=== PATIENT | female | born 1935 | race Caucasian/White ===

== ENCOUNTER 2021-06-04 23:11 | Inpatient (IN) | payer OTHER ==
[~2021-06-04] VITALS: Ht 162.6 cm; Wt 55.4 kg
--- NOTE | ~2021-06-04 | EMS ---
[address] [address] EMS Patient Care Report Name: SARAH GREENE Room #: REG MONTSERRAT Davidson#: [id number] Admission: 06/04/21 Attend Phys: Discharge: Date of : 34 Report #: [id number] THIS REPORT FOR: //name// Report Transmitted: 06/04/2021 23:05 EMS Care Summary [facility] MED-ACT Incident [id number] @ 06/04/2021 22:19 Incident Location [facility] [place] [address] Patient SARAH GREENE Female, 86 Years 1935 Patient Address [address] [place] [address] Patient History Dementia,Hypertension (HTN),Pneumonia,Depression,Anemia,Hypothyroidism, Patient Allergies Penicillin allergy,Sulfa, Patient Medications Cipro, Hydrochlorothiazide (Hctz), Albuterol, Levothyroxine, Chief Complaint not eating and drinking Disposition Transported No Lights/[place] Dispatch Reason Sick Person Transported To [facility] Narrative Dispatched to the above residence for a reported sick person. Arrived on scene to find pt. lying on sofa, AOx4, no obvious distress, attended to by staff. [facility] [address] [place] [address] EMS Patient Care Report Name: SARAH GREENE Room #: ROSARIO Davidson#: [id number] Admission: 06/04/21 Attend Phys: Discharge: Date of : 34 Report #: [id number] Staff report that the pt. was diagnosed 2 weeks ago with pneumonia and finished her antibiotics. Staff report that the pt. is still not eating and drinking well, has had fairly low BP all day and low oxygen levels. Pt. denied difficulty breathing, dizziness but did state "I don't feel well and need rest." Pt. initially hesitant to be transported to ED late at night but agreed after being informed her daughter wanted her to be evaluated at the ED. Obtained VS, 3 Ld ECG, temp. Lifted pt. and moved to cot, secured with straps and moved cot to ambulance without incident. Placed pt. on O2 as charted. Monitored pt. during transport. Biocom to ED, bedside report and transfer of care to ED staff at [facility]. Initial Vitals @22:46P: 104,BP: 95/61,SpO2: 88, @22:41P: 100,SpO2: 89, @23:01P: 115,BP: 98/66,SpO2: 96, @22:48P: 110,SpO2: 90,MD Suspected: false @22:58P: 85,SpO2: 96, @22:31P: 82,R: 16,BP: 93/57,Pain: 0/10,GCS: 15,Temp: 98.9F,SpO2: 89,Revised Trauma: 12, Impression Malaise Procedures @PTASurgical Mask on Patient@23:02Oxygen FlowRate: 2 Device: Nasal Cannula (NC) Response: ImprovedSucceeded Timeline MEDICAL CODING MANAGER,Surgical Mask on Patient, 22:17,Call Received 22:17,Psap Call 22:19,Dispatched 22:21,En Route 22:29,On Scene 22:29,At Patient 22:31,BP: 93/57 M,PULSE: 82,RR: 16 R,SPO2: 89 Ox,ETCO2: ,BG: ,PAIN: 0,GCS: 15, 22:41,BP: / M,PULSE: 100,RR: R,SPO2: 89 Ox,ETCO2: ,BG: ,PAIN: ,GCS: , 22:46,BP: 95/61 M,PULSE: 104,RR: R,SPO2: 88 Ox,ETCO2: ,BG: ,PAIN: ,GCS: , 22:48,BP: / M,PULSE: 110,RR: R,SPO2: 90 Ox,ETCO2: ,BG: ,PAIN: ,GCS: , 22:51,Depart Scene 22:58,BP: / M,PULSE: 85,RR: R,SPO2: 96 Ox,ETCO2: ,BG: ,PAIN: ,GCS: , 23:01,BP: 98/66 M,PULSE: 115,RR: R,SPO2: 96 Ox,ETCO2: ,BG: ,PAIN: ,GCS: , 23:02,Oxygen FlowRate: 2 Device: Nasal Cannula (NC) Response: Andrewccmichel, 23:05,At Destination [address] [place] [address] EMS Patient Care Report Name: SARAH GREENE Room #: REG Lety#: [id number] Admission: 06/04/21 Attend Phys: Discharge: Date of : 34 Report #: [id number] 23:11,Call Closed Disclaimer v1.1 Copyright 2020 [employer] This EMS Care Summary contains data elements from the applicable legal record (which may be displayed differently). It is designed to provide pertinent information for the following purposes: continuity of care, clinical quality, and state data reporting. The complete legal record is available to ED staff and administrators of the receiving hospital in [employer]'s Patient Tracker. All data is provided "as is."
--- NOTE | ~2021-06-04 | HC ---
[facility] [place] [address] CONSULTATION Name: SARAH GREENE Room #: 450-P ADM IN M.R.#: [id number] Admission: 06/05/21 Attend Phys: Ozzie Pelayo MD Discharge: Date of : 34 Report #: [id number] THIS REPORT FOR: cc: Cody Redmond MD, Mark I. MD Smithson, David G. MD ~ DATE OF SERVICE: 06/07/2021 HISTORY OF PRESENT ILLNESS: This is an 86-year-old white female who lives in assisted living facility, was admitted with acute respiratory failure, sepsis, pneumonia, mental status changes with an apparent toxic metabolic encephalopathy, multiple electrolyte abnormalities. She also was diagnosed with a pulmonary embolism noted to be right-sided and a left lower extremity DVT. She has been follow closely with Infectious Disease and Internal Medicine as well as Geriatrics. She is gradually improving and her oxygen is being weaned. She is being treated with IV vancomycin and aztreonam as well as Solu-Medrol. She has been on heparin drip. We are seeing her in rehabilitation medicine consultation. PAST MEDICAL HISTORY: Includes congestive heart failure, major depressive disorder, hypertension, COPD. There is a note of some dementia. MEDICATIONS: See the full medication listing. ALLERGIES: PENICILLIN AND SULFA. SOCIAL HISTORY: As noted above. She had been living in her own independent apartment up until last fall and has now been living in assisted living facility. She did not utilize any gait aids and was not on oxygen. There is a daughter who is a durable power of deputy commonwealth's attorney, who lives in [place]. REVIEW OF SYSTEMS: No current complaints of chest pain, shortness of breath or abdominal discomfort. PHYSICAL EXAMINATION: GENERAL: An 86-year-old white female in no obvious distress. VITAL SIGNS: Last recorded temperature of 36.3, pulse 57, respirations 16, blood pressure 114/56. NEUROLOGIC: She is alert. She will follow basic 1-step commands. There is some delay to her responses. Facies appeared symmetric. She is pleasant. She has functional range of motion of both upper extremities. Strength is grade 4-/5. DTRs are trace to 1. Lower extremities, tone appeared to be intact, no focal calf swelling, functional range of motion, strength is grade 3+ to 4-/5. She has been min assist; sit to stand and gait was last 5 feet min-assist with a front-wheeled walker. She is currently off oxygen. [address] [address] CONSULTATION Name: SARAH GREENE Room #: 450-P [facility] IN [facility]#: [id number] Admission: 06/05/21 Attend Phys: Ozzie Pelayo MD Discharge: Date of : 34 Report #: [id number] ASSESSMENT: An 86-year-old white female with the following problem list: 1. Toxic metabolic encephalopathy. 2. Acute respiratory failure. 3. Sepsis. 4. Pulmonary embolism with left lower extremity deep venous thrombosis. 5. Congestive heart failure. 6. Major depressive disorder. 7. History of hypertension. 8. Chronic obstructive pulmonary disease. PLAN: The patient is a candidate for a short acute in-hospital inpatient rehabilitation stay. The goal would be to maximize her functional strength and independence, so she can return back to her assisted living facility. It also be to further stabilize her medical condition with the multiple consultants that could continue to follow while she is on rehabilitation. She appears to have the tolerance for an acute inpatient rehabilitation stay. We can plan on transfer if all agreeable and medically cleared. By: [id number] Imer Shah MD /nt
[2021-06-04 23:12] VITALS: BP 123/58
[2021-06-04] MEDS ORDERED: ALBUTEROL2.5 MG/31 (23:28)
[2021-06-04] MEDS ORDERED: FERROUS SULFATE PO (23:28)
[2021-06-04] MEDS ORDERED: LEVO-T50 MCG PO (23:30)
[2021-06-04] MEDS ORDERED: HYDROCHLOROTHIA25 M1 PO (23:30)
[2021-06-04] MEDS ORDERED: LASIX 40 MG TAB40 MG PO (23:30)
[2021-06-04] MEDS ORDERED: GUAIFENESIN ER PO (23:30)
[2021-06-04] MEDS ORDERED: MILK OF MA400 MG/5 M PO (23:31)
[2021-06-04] MEDS ORDERED: LOPERAMIDE2 MG PO (23:31)
[2021-06-04] MEDS ORDERED: DAILY VITE1 EAC1 PO (23:32)
[2021-06-04] MEDS ORDERED: LASIX 40 MG TAB40 M2 PO (23:34)
[2021-06-04] MEDS ORDERED: REMERON15 M2 PO (23:36)
[2021-06-04] MEDS ORDERED: KLOR-CON 10 ER10 MEQ PO (23:37)
[2021-06-04 23:48] LABS: ABSOLUTE NEUTROPHILS 15.8 thou/uL (1.4-8.2); BASOPHILS 0.1 % (0.0-2.0); EOSINOPHILS 0.1 % (0.0-3.0); HEMATOCRIT 37.7 % (37.0-47.0); HEMOGLOBIN 12.2 gm/dL (12.0-15.0); MCH 27.4 pg (26.0-34.0); MCHC 32.3 g/dL (28.0-37.0); MCV 84.8 fL (80.0-100.0); MONOCYTES 6.1 % (1.0-8.0); PLATELET COUNT 404 thou/uL (150-400); POLYS 88.7 % (36.0-66.0); RBC 4.44 mil/uL (4.20-5.00); RDW 14.1 % (10.5-14.5); WBC 17.9 thou/uL (4.0-11.0)
[2021-06-05 00:19] LABS: ALBUMIN 2.7 g/dL (3.4-5.0); ANION GAP 3 mmol/L (7-16); BUN 49 mg/dL (7-18); CALCIUM 8.7 mg/dL (8.5-10.1); CHLORIDE 83 mmol/L (98-107); CO2 43 mmol/L (21-32); CREATININE 1.4 mg/dL (0.6-1.0); GLUCOSE 143 mg/dL (74-106); MAGNESIUM 1.7 mg/dL (1.8-2.4); SGOT 27 U/L (15-37); SGPT 18 U/L (30-65); SODIUM 129 mmol/L (136-145); TOTAL BILIRUBIN 0.5 mg/dL (0.2-1.0); TOTAL PROTEIN 7.7 g/dL (6.4-8.2); TROPONIN-I <0.06 ng/mL (<0.06)
[2021-06-05 00:21] LABS: POTASSIUM 2.1 mmol/L (3.5-5.1)
[2021-06-05 00:26] LABS: URINE BILIRUBIN NEGATIVE (Negative); URINE BLOOD NEGATIVE (Negative); URINE CLARITY CLEAR; URINE COLOR YELLOW; URINE GLUCOSE-RANDOM* NEGATIVE (Negative); URINE KETONES NEGATIVE (Negative); URINE LEUKOCYTES-REFLEX NEGATIVE (Negative); URINE NITRITE-REFLEX NEGATIVE (Negative); URINE PROTEIN (DIPSTICK) NEGATIVE (Negative); URINE SPECIFIC GRAVITY 1.015 (1.005-1.035); URINE UROBILINOGEN 0.2 E.U./dl (0.2-1.0)
[2021-06-05 03:02] LABS: INR 1.05; PROTIME 11.4 Seconds (10.5-12.1)
--- NOTE | 2021-06-05 07:09 | EKG ---
[address] [address] ELECTROCARDIOGRAM REPORT Name: SARAH GREENE Room #: 170-8 ADM IN M.R.#: [id number] Admission: 06/05/21 Attend Phys: Roland Sanchez MD Discharge: Date of : 34 Report #: [id number] [facility] ED Test Date: 2021-06-04 Test Time: 23:11:11 Pat Name: SARAH GREENE Department: Room: 170 Gender: F Patient Relations Specialist: JULIANNA : 1935 Requested By: Meg Lim Order Number: [id number] MD: Brian Mack Measurements Intervals [place] Rate: 120 P: 102 CA: 247 QRS: 72 QRSD: 90 T: -87 QT: 390 QTc: 552 Interpretive Statements Sinus tachycardia Prolonged CA interval Prominent P waves, nondiagnostic Posterior infarct, acute (LCx) Prolonged QT interval Baseline wander in lead(s) V6 No previous ECG available for comparison Electronically Signed On 06-05-2021 7:09:43 CDT by Brian Mack [email or web address] <ELECTRONICALLY SIGNED> By: Brian Mack MD, [facility] 06/05/21 [phone] 10 Brian Mack MD, [facility] /EPI
[2021-06-05 07:38] VITALS: BP 102/52
[2021-06-05 08:00] VITALS: BP 102/48
[2021-06-05 13:00] VITALS: BP 102/52
[2021-06-05 13:31] VITALS: BP 99/79
[2021-06-05 15:00] VITALS: BP 93/60
--- NOTE | 2021-06-05 16:50 | NUR ---
86 year old female presented to the ED on 06-04-21 with SOA. Patient was transported via EMS ground and had a pulse Ox of 89% on RA. The patient currently [facility] at [place] [facility] She has had previous treatment for pneumonia with Levaquin and Cipro. Found to have per CTA a Right-sided pulmonary emboli. ID NOW in the ED notes negative and ED Triage assessment the patient is not vaccinated. The patients daughter and DPOA notes the patient IS FULLY vaccinated by [employer] by November of 2020. The patient has been admitted with Acute hypoxic respiratory failure - Sepsis - Elevated D-Dimer - Hyponatremia - Hypokalemia - Hypo magnesium - ROSIE- Hypothyroidism. NOTED: 06-05-21 APTT 100.8 and Potassium of 2.6 called to ED nurse. Daughter /DPOA Esthela Cedillo [phone]; she was living in an apartment alone until 08-05. At that time the patient was sent to a hospital and then went to SNF in [facility]. Since then the patient has been living in Assisted Living. Esthela lives in [place] but is emailing me her DPOA papers which I in turn can get to the medical record. The patient's step daughter Susanna Bañuelos at [phone] who does live in [place]. Ishaan Eric is the patient's brother and coming to see his sister - the patient from [place]. Esthela is very comfortable with allowing both Ishaan and Susanna involved and updated on the patient's condition. Introduced the role of CM and discussed as conditions stabilized and evaluations completed CM will assist with discharge plan of care up to including SNF to acute rehab or home health. CM will continue to follow for all needs.
--- NOTE | 2021-06-05 16:56 | NUR ---
Pt arrived to floor from ED per cart in stable condition.Admission history, assessment and care plan completed with assist of step dtr.Pt placed on claim adjuster and late lunch given. Heparin gtt in progress.No verbal c/o. Pt dtr to sign admission paperwork in am.Will continue to monitor.
[2021-06-05 19:42] VITALS: BP 114/48
--- NOTE | 2021-06-06 05:30 | NUR ---
patient aox2 confused and forgetful. patient on heparin drip and flow chart started. patient denied pain or discomfort. fall precaution in place. patient in bed asleep at this time breathing regular and unlaboured.
[2021-06-06 07:47] VITALS: BP 109/55
--- NOTE | 2021-06-06 11:58 | NUR ---
Assumed pt care at 7am.Pt in bed resting without c/o.Assessment completed.vss. Assisted with tray setup. Am meds given and well tolerated.Physical therapist here for eval and treat.Heparin gtt in progress.Dr Pelayo here,new order noted. Pt in bed resting at present. Will continue to monitor.
--- NOTE | 2021-06-06 15:32 | NUR ---
ASSUMED CARE OF PT AT 1300 THIS AFTERNOON. PT IS A/OX2 CONFUSED AND FORGETFUL. PT HAS HEPRIN GTT GOING DUE TO DVT AND PE. ASSESSMENTS NOTED IN CHART AND OTHERWISE UNREMARKABLE. IV'S IN BILAT AC WITH FLUIDS. FALL PRECAUTIONS ARE IN PLACE. CALL LIGHT AND OTHER NEEDS ARE WITHIN REACH.MEDS AND TX GIVEN NEEDED AND SCHEDULED. WILL MONITOR AND NOTE ANY CHANGES.
[2021-06-06 16:50] VITALS: BP 109/53
[2021-06-06 20:20] VITALS: BP 108/57
[2021-06-07 02:35] LABS: HEMATOCRIT 37.2 % (37.0-47.0); HEMOGLOBIN 11.3 gm/dL (12.0-15.0); MCH 27.4 pg (26.0-34.0); MCHC 30.4 g/dL (28.0-37.0); RBC 4.12 mil/uL (4.20-5.00); RDW 15.3 % (10.5-14.5); WBC 20.9 thou/uL (4.0-11.0)
[2021-06-07 02:42] LABS: MCV 90.3 fL (80.0-100.0)
[2021-06-07 02:45] LABS: CALCIUM 7.9 mg/dL (8.5-10.1)
--- NOTE | 2021-06-07 05:26 | NUR ---
Pt. rested quietly at intervals during the night when checked on during frequent rounds. She is pleasantly confused. Pt. offers no c/o pain. Bed alarm is on.
[2021-06-07 07:25] VITALS: BP 116/52
[2021-06-07 15:23] VITALS: BP 120/60
[2021-06-07 17:33] VITALS: BP 120/60
[2021-06-07 20:19] VITALS: BP 105/51
--- NOTE | 2021-06-07 20:59 | NUR ---
pT VERY PLEASANT. nO C/O PAIN TODAY. HEPARIN DRIP LOWERED TO 8 DUE TO ptt AT 87.1. pT HAS RICHTER CATH. nO SPUTUM ON TODAYS SHIFT. WEARING O2 PER NC AT 2L. bED IN LOW POSITION. cALL LIGHT WITHIN REACH.
--- NOTE | 2021-06-08 02:55 | NUR ---
PT CARE ASSUMED WITH PT IN CHAIR WATCHING TV.PT IS A/O X3.PT IS UP WITH X1 ASSIST WITH GAIT BELT AND WALKER.PT IS ON HEPARIN DRIP.IV ACCESS ON RT FA AND LT AC .PT HAS A RICHTER IN PLACE.PT DENIED PAIN ,NAUSEA AND VOMITING.PT HAS EDEMA ON BLE AND BUE.PT TAKE MED WHOLE WITH NO ISSUES.PT IS ON 2L OF O2 VIA NC.WILL CONTIINUE TO MONITOR PER POC
[2021-06-08 07:30] VITALS: BP 114/56
--- NOTE | 2021-06-08 09:10 | NUR ---
86 year old female presented to the ED on 06-04-21 with SOA. Patient was transported via EMS ground and had a pulse Ox of 89% on RA. The patient currently resides at [place] [facility] ([facility]). She has had previous treatment for pneumonia with Levaquin and Cipro. Found to have per CTA a Right-sided pulmonary emboli. ID NOW in the ED notes negative and ED Triage assessment the patient is not vaccinated. The patients daughter and DPOA notes the patient IS FULLY vaccinated by [employer] by November of 2020. The patient has been admitted with Acute hypoxic respiratory failure - Sepsis - Elevated D-Dimer - Hyponatremia - Hypokalemia - Hypo magnesium - ROSIE- Hypothyroidism. NOTED: 06-05-21 APTT 100.8 and Potassium of 2.6 called to ED nurse. Daughter /DPOA Esthela Cedillo [phone]; she was living in an apartment alone until 08-05. At that time the patient was sent to a hospital and then went to SNF in [facility]. Since then the patient has been living in Assisted Living. Esthela lives in [place] but is emailing me her DPOA papers which I in turn can get to the medical record. The patient's step daughter Susanna Bañuelos at [phone] who does live in [place]. Pt's brother also to visit pt. Cm following regarding dc planning.
--- NOTE | 2021-06-08 11:16 | NUR ---
CM CALLED AND SPOKE WITH PT'S DTR/DPOA THIS AM. SHE INDICATED THAT THE HADN'T BEEN ON ANY O2 SAFETY PATROL OFFICER AND THAT PT HAD BEEN INDEPEDNENT WITH GAIT. CM INDICATED TO HER THAT CARE TEAM HAVE DETERMINED THAT PT IS MEDICALLY STABLE TO DC TO NEXT LEVEL OF CARE THIS DAY. CM INDICATED THAT PT IS TO SWITCH TO ORAL ABX AND ELIQUIS. 5N EXPRESSED INTEREST IN ASSESSING FOR POSSIBLE ADMISSION. DTR, STEP DTR, AND BROTHER ALL INVOLVED AND DTR INOCENCIA INDICATED THAT 5N CAN ACCESS AND THAT SHE WOULD LIKELY PREFER PT GO TO 5N IF APPROPRIATE FOR ADDITIONAL MEDICAL MONITORING. CM FOLLOWING REGARDING DC PLANNING.
--- NOTE | 2021-06-08 14:58 | NUR ---
AT SHIFT CHANGE; PATIENT WAS FOOUND LYING IN BED; A&OX4 AND PLEASANTLY CONFUSED. ASSESSMENT CHARTED. MEDS ADMINISTERED PO W NO ISSUES. ABX INFUSING ON L AC W NO ISSUES; HEPARIN GTT ALSO INFUSING ON R FA W NO ISSUES. SPUTUM CULTURE STILL PENDING; PATIENT EDUCATED ON COLLECTION OF SPUTUM; AWARE BUT CONFUSED AT TIMES. RICHTER DISCONTINUED & PATIENT VOIDING WELL. ELIQUIS ORDERED; PAGED PROVIDER ABOUT DC HEPARIN. PATIENT TO TRANSFER TO TOMORROW. COVID NOW SWAB TO BE COMPLETE. DENIES PAIN & OTHER NEEDS. CONTINUING TO MONITOR AND AWAITING NEW ORDERS
[2021-06-08 15:32] VITALS: BP 114/61
--- NOTE | 2021-06-08 16:29 | NUR ---
THIS RN AGREES WITH THE FILLER SIFTER HELPER ASSESSMENT.
[2021-06-08 20:47] VITALS: BP 124/64
--- NOTE | 2021-06-09 03:02 | NUR ---
ASSUMED CARE OF PT AT SHIFT CHANGE. PT WAS ALERT AT THE TIME OF ASSESSMENT BUT ONLY ORIENTED TO PERSON. FALL PRECAUTION IN PLACE. PT DENIED PAIN, NAUSEA OR SOA. ASSESSMENT CHARTED. PT WAS INCT THIS SHIFT. PT PULLED OUT ONE OF HER IVS. PT WAS ABLE TO GET COMFORTABLE AND SLEEP PART OF THE SHIFT. VSS AND NO S/S OF ACUTE DISTRESS. WILL CONTINUE TO MONITOR.
[2021-06-09 07:31] VITALS: BP 116/42
[2021-06-09 08:20] VITALS: BP 116/42
--- NOTE | 2021-06-09 10:31 | NUR ---
CALLED AND SPOKE TO SONIA LR TAKING CARE OF MS. GREENE. SHE TOLD ME THAT THIS PATIENT WILL BE TRANSFERRING TO 5N TODAY. WALK IS THEN UNNECCESARY AND NOT NEEDED TO GERTRUDISSKIMBERLY. CANCELLED BY THIS RT
[2021-06-09 10:32] LABS: ABSOLUTE NEUTROPHILS 13.6 thou/uL (1.4-8.2); BASOPHILS 0.1 % (0.0-2.0); EOSINOPHILS 0.1 % (0.0-3.0); HEMATOCRIT 37.2 % (37.0-47.0); HEMOGLOBIN 11.7 gm/dL (12.0-15.0); LYMPHOCYTES 10.7 % (24.0-44.0); MCH 27.1 pg (26.0-34.0); MCHC 31.6 g/dL (28.0-37.0); MCV 85.9 fL (80.0-100.0); MONOCYTES 4.7 % (1.0-8.0); PLATELET COUNT 379 thou/uL (150-400); POLYS 84.4 % (36.0-66.0); RBC 4.33 mil/uL (4.20-5.00); RDW 14.8 % (10.5-14.5); WBC 16.2 thou/uL (4.0-11.0)
[2021-06-09 10:50] LABS: ALBUMIN 2.2 g/dL (3.4-5.0); CALCIUM 8.5 mg/dL (8.5-10.1); CREATININE 0.8 mg/dL (0.6-1.0); MAGNESIUM 1.4 mg/dL (1.8-2.4); POTASSIUM 3.6 mmol/L (3.5-5.1); TOTAL BILIRUBIN 0.2 mg/dL (0.2-1.0); TOTAL PROTEIN 6.2 g/dL (6.4-8.2)
[2021-06-09] MEDS ORDERED: DOXYCYCLINE HYC50 MG PO (11:46)
[2021-06-09] MEDS ORDERED: ELIQUIS5 MG PO (11:47)
[2021-06-09] MEDS ORDERED: ZINC SULFATE50 MG PO (11:48)
[2021-06-09] MEDS ORDERED: PROTONIX 20 MG20 M1 PO (11:49)
--- NOTE | 2021-06-09 12:01 | NUR ---
ASSUMED CARE OF PATIENT AT SHIFT CHANGE. ASSESSMENT CHARTED; MEDS ADMINISTERED PER EMAR. VSS. PATIENT GOT UP THIS MORNING X1 MIN-MOD ASSIST. PATIENT WAS INCONTINENT OF BOWEL & BLADDER BUT DURING DAY IS ABLE TO VOICE NEED TO VOID. PATIENT C/O DIARRHEA BUT HAS SOFT, FORMED STOOLS. PATIENT IS TOLERATING PO INTAKE WELL ALONG WITH THIN LIQUIDS. TAKES MEDS WHOLE WITH NO ISSUES; STILL A BIT CONFUSED AND FORGETFUL BUT EASILY REDIRECTED. VOICES NO FURTHER NEEDS. IV WILL BE LEFT IN FOR TRANSFER TO . TABLE TENDER AWARE; PATIENT HAS AN ETA OF AFTER 1400. WILL CONTINUE TO MONITOR UNTIL DISCHARGE
--- NOTE | 2021-06-09 12:05 | NUR ---
CARE TEAM INDICATED THAT PT IS MEDICALLY STABLE TO DC TO 5N THIS DAY. PT WAS INFORMED WELL PT'S DTR/DPIRISH PRO. NURSE HAS NUMBER FOR REPORT. PT IS TO DC THERE LATER THIS AFTERNOON. NO OTHER CM INTERVENTION INDICATED. CASE CLOSED.
== END 2021-06-09 15:27 | DRG 871 ==
LOC: ER 23:11 → 4W 06-05 02:24 → EROBS 06-05 02:24 → 4W 06-05 13:00
PROVIDERS: Emergency Medicine; Internal Medicine; Nurse Practitioner Family; ADMIT Hospitalist; ATTEND Hospitalist
DX: A41.9 Sepsis, unspecified organism (principal); J18.9 Pneumonia, unspecified organism; J96.01 Acute respiratory failure with hypoxia; G92 Toxic encephalopathy; I26.99 Other pulmonary embolism without acute cor pulmonale; E87.1 Hypo-osmolality and hyponatremia; N17.9 Acute kidney failure, unspecified; I82.412 Acute embolism and thrombosis of left femoral vein; I82.432 Acute embolism and thrombosis of left popliteal vein; J44.0 Chronic obstructive pulmonary disease with (acute) lower respiratory infection; Z20.822 Contact with and (suspected) exposure to COVID-19; M81.0 Age-related osteoporosis without current pathological fracture; E87.6 Hypokalemia; E03.9 Hypothyroidism, unspecified; F32.9 Major depressive disorder, single episode, unspecified; I11.0 Hypertensive heart disease with heart failure; E83.42 Hypomagnesemia; I50.9 Heart failure, unspecified; F03.90 Unspecified dementia, unspecified severity, without behavioral disturbance, psychotic disturbance, mood disturbance, and anxiety; R53.81 Other malaise; Z88.0 Allergy status to penicillin; Z88.2 Allergy status to sulfonamides; Z79.899 Other long term (current) drug therapy
CPT/HCPCS: 10045

== ENCOUNTER 2021-06-08 14:51 | Inpatient (IN) | payer OTHER ==
[~2021-06-08] VITALS: Ht 162.6 cm; Wt 54.4 kg
[~2021-06-08 14:51] MED LIST: ALBUTEROL2.5 MG/31; DAILY VITE1 EAC1 PO; FERROUS SULFATE PO; GUAIFENESIN ER PO; HYDROCHLOROTHIA25 M1 PO; KLOR-CON 10 ER10 MEQ PO; LASIX 40 MG TAB40 M2 PO; LASIX 40 MG TAB40 MG PO; LEVO-T50 MCG PO; LOPERAMIDE2 MG PO; MILK OF MA400 MG/5 M PO; REMERON15 M2 PO
[2021-06-09] MEDS ORDERED: DOXYCYCLINE HYC50 MG PO (11:46)
[2021-06-09] MEDS ORDERED: ELIQUIS5 MG PO (11:47)
[2021-06-09] MEDS ORDERED: ZINC SULFATE50 MG PO (11:48)
[2021-06-09] MEDS ORDERED: PROTONIX 20 MG20 M1 PO (11:49)
[2021-06-09 15:30] VITALS: BP 102/53
--- NOTE | 2021-06-09 15:30 | NUR ---
PT ARRIVED VIA JESSICA CHAIR. PT ALERT TO SELF. PT DIDN'T KNOW WHAT DAY OF THE WEEK IT WAS, PT THOUGHT IT WAS TUESDAY. PT PLEASANT AND ANSWERED ADMIT QUESTIONS. PT LUNGS SOUNDED EXP CRACKLES WITHOUT COUGH. PT DENIES ANY SOB. PT DIDN'T HAVE BRIEF ON. PT WANTED COFFEE TO DRINK. PT TOLERATED COFFEE WITHOUT COUGH. PT HAS CHAIR ALARM ON. PT ORIGIONALY FROM [facility]. PT HAD UTI AND ALSO PNA. PT HAS DVT, PT DIDN'T KNOW WHERE DVT IS LOCATED. PT HAD LARGE BM TODAY ON PREVIOUS UNIT. PT HAS SL TO RT FA THAT IS WRAPPED.
--- NOTE | 2021-06-09 17:20 | NUR ---
PT CHEWING ON LEFT THUMB NAIL. NOTICED A URINE ODOR. PT WAS INCON. OF URINE AND HAD SMALL SMEAR OF BM ON PAD. PLACED BRIEF PANTS ON PT, AND GAVE PT HER TRAY FOR DINNER.
[2021-06-09 19:23] VITALS: BP 105/66
--- NOTE | 2021-06-10 00:09 | NUR ---
PT ALERT AND CONFUSED. UP IN RECLINER ALL EVENING. TRANSFERRED TO BED AT WITH ASSIST X 1. PT TOOK HS MEDS WITH WATER WITHOUT DIFFICULTY. PT DENIES PAIN OR DISCOMFORT. BED ALARM ON FOR SAFETY. PT APPEARS TO BE SLEEPING ON HOURLY ROUNDS.
[2021-06-10 06:04] LABS: HEMATOCRIT 31.5 % (37.0-47.0); HEMOGLOBIN 10.3 gm/dL (12.0-15.0); MCH 27.9 pg (26.0-34.0); MCHC 32.7 g/dL (28.0-37.0); MCV 85.2 fL (80.0-100.0); RBC 3.7 mil/uL (4.20-5.00); RDW 14.8 % (10.5-14.5); WBC 11.6 thou/uL (4.0-11.0)
[2021-06-10 06:18] LABS: CALCIUM 7.7 mg/dL (8.5-10.1); CREATININE 0.8 mg/dL (0.6-1.0); POTASSIUM 3.7 mmol/L (3.5-5.1)
[2021-06-10 06:52] LABS: FOLIC ACID 12.8 ng/mL (8.6-58.9)
[2021-06-10 07:15] VITALS: BP 98/52
[2021-06-10 09:00] VITALS: BP 98/52
--- NOTE | 2021-06-10 14:45 | NUR ---
Chart review, tried to visit her today, working with therapy and currently resting in bed with eyes closed. Noted she lives alone at ([facility]. 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 No dme. Unknown if had hh in the past. Will cont following as needed for dc needs.
[2021-06-10 15:17] LABS: URINE BILIRUBIN NEGATIVE (Negative); URINE BLOOD NEGATIVE (Negative); URINE CLARITY CLEAR; URINE COLOR YELLOW; URINE GLUCOSE-RANDOM* NEGATIVE (Negative); URINE KETONES NEGATIVE (Negative); URINE LEUKOCYTES-REFLEX NEGATIVE (Negative); URINE NITRITE-REFLEX NEGATIVE (Negative); URINE PROTEIN (DIPSTICK) NEGATIVE (Negative); URINE UROBILINOGEN 0.2 E.U./dl (0.2-1.0)
[2021-06-10 19:56] VITALS: BP 114/48
--- NOTE | 2021-06-10 22:21 | NUR ---
ASSUMED CARE OF PT AT 1900. PT IS A&O TO SELF. IS ON ROOM AIR. DENIES PAIN. IS STABLE. IS UP WITH 1 ASSIST, GB, STAND PIVOT. FALL PRECAUTIONS & HOURLY ROUNDING CONTINUED THIS SHIFT. PT IS CURRENTLY ASLEEP. CALL LIGHT WITHIN REACH. IS TURNED Q2H WITH CUEING & ASSIST. WILL CONTINUE TO MONITOR.
[2021-06-11 09:55] VITALS: BP 94/52
--- NOTE | 2021-06-11 14:50 | NUR ---
FAXED CLINICAL UPDATES TO THE [facility] ([facility] WILL CONFIRM THEY RECEIVED. [facility] P [phone]; FAX [phone]
--- NOTE | 2021-06-11 16:00 | NUR ---
tommy/pablo with missael at [facility] got updates today and will send more updates next week per tommy request and have faxed to bill office since faxes are down and don't have to fax to the skilled side. per tommy.
[2021-06-11 19:35] VITALS: BP 108/59
[2021-06-11 19:47] VITALS: BP 94/52
--- NOTE | 2021-06-11 20:25 | NUR ---
ASSUMED CARE OF PT AT 0700. PT ALERT TO SELF ONLY, PLESANTLY CONFUSED. PT WILLINGLY WORKS WITH THERAPIES. PT APPETITE IS POOR.
--- NOTE | 2021-06-11 21:40 | NUR ---
PATINET CARE WAS RESUMED AT 1900. SHE IS ALERT AND ORIENTED X2 WITH SOME CONFUSSION, SHE DENIES PAINS. LUNGS ARE CLEAR BUT DIMINISHED AT BASES. BS ACTIVE X4 QUADS. ABLE TO VERBALIZE SOME CONCERNS. TOOK HER MEDS. CONTINUE CARE AND MONITOR
[2021-06-12 08:00] VITALS: BP 104/60
--- NOTE | 2021-06-12 12:37 | NUR ---
1237 ASSUMED CARE OF PT FROM OVERNIGHT NURSE. PT C/O PAIN OF 4/10 IN BACK. RECEIVED ORDER FOR VOLTAREN CREAM AND APPLIED TO LOWER BACK. PT TOLERATED PROCEDURE WELL. PT LUNGS CLEAR. WILL CONT TO MONITOR FOR SAFETY AND NEEDS.
--- NOTE | 2021-06-12 12:39 | NUR ---
1239 PT AMBULATES W ASSIST OF 1, GAIT BELT AND WALKER.
[2021-06-12 19:21] VITALS: BP 103/56
--- NOTE | 2021-06-13 03:37 | NUR ---
patient aox2 confused and forgetful.patient need assistance x 1 with adl, bed mobility, transfer and toileting. patient encouraged fluids. patient gets irritable at times. fall precaution in place. patient in bed asleep at this time breathing regular and unlaboured.
--- NOTE | 2021-06-13 08:00 | NUR ---
PT WORKING WITH THERAPY THIS AM GETTING A SHOWER. PT THEN WALKED OUT TO DINING ROOM WITH WALKER FOR BREAKFAST. PT LUNGS CLEAR. PT INCON. OF URINE OR HAS URGENCY. PT HAS AMELIE HOSE ON BILATERALY. PT ORIENTED TO SELF.
[2021-06-13 08:15] VITALS: BP 115/72
--- NOTE | 2021-06-13 09:00 | NUR ---
PT STATED SHE NEEDED TO USE THE BATHROOM. ASSISTED PT TO STAND AND PT ABLE TO WALK TO ROOM. PT WAS INCON. OF SOFT STOOL. PT WAS APPOLIGIZING FOR INCON. PT RECIEVED LAXITIVE DURING THE NIGHT.
--- NOTE | 2021-06-13 09:47 | NUR ---
PT ABLE TO TAKE MEDS WHOLE WITH THIN WATER.
--- NOTE | 2021-06-13 12:09 | NUR ---
PT IN BED LEANING OVER. NOTICED PT HAS A COUGH SINCE LAST MEDICATION ADM. PT IN ROOM AT THIS TIME.
--- NOTE | 2021-06-13 14:54 | NUR ---
PT WENT TO BATHROOM AT 1439. CHECKING ON PT AND SHE STATED SHE WAS NOT FINISHED YET. PT STATED HER STOMACH FELT UPSET AND NEEDED TIME ON TOILET. TOLD PT THAT SHE HAD A MED SOFT BM THIS AM. PT REFUSED TO GET UP OFF TOILET AT THIS TIME.
[2021-06-13 19:25] VITALS: BP 100/57
--- NOTE | 2021-06-14 00:10 | NUR ---
PT ALERT AND ORIENTED X 4. PT TOOK HS MEDS IN APPLESAUCE WITHOUT DIFFICULTY. INCONT OF URINE. PT DENIES PAIN OR DISCOMFORT. BED ALARM ON FOR SAFETY. PT APPEARS TO BE SLEEPING ON HOURLY ROUNDS.
[2021-06-14 07:45] VITALS: BP 109/45
[2021-06-14 08:20] VITALS: BP 109/45
--- NOTE | 2021-06-14 18:31 | NUR ---
ASSUMED CARE OF PT AT 0700. PT ALERT TO SELF, SITUATION, AND MONTH. PT TOLEARING MECHANICAL CHOPPED DIET. PT TAKES HER PILLS ONE AT TIME WITH WATER. PT STATES SHE IS CRANKY TODAY BUT DOESNT KNOW WHY. DENIES PAIN. WILL CONTNIUE TO MONITOR.
[2021-06-14 19:45] VITALS: BP 112/49
--- NOTE | 2021-06-14 22:52 | NUR ---
PT ALERT AND ORIENTED X 1. AMB TO BR WITH WALKER AND ASSIST X 1 WITHOUT DIFFICULTY. INCONT OF URINE. ALSO VOIDS IN TOILET. PT TOOK HS MEDS IN WATER WITHOUT DIFFICULTY. PT DENIES PAIN OR DISCOMFORT. BED ALARM ON FOR SAFETY. PT APPEARS TO BE SLEEPING ON HOURLY ROUNDS.
[2021-06-15 05:30] LABS: BASOPHILS 0.5 % (0.0-2.0); EOSINOPHILS 3.9 % (0.0-3.0); HEMATOCRIT 31.7 % (37.0-47.0); HEMOGLOBIN 10.5 gm/dL (12.0-15.0); LYMPHOCYTES 21.6 % (24.0-44.0); MCH 28.2 pg (26.0-34.0); MCHC 33.1 g/dL (28.0-37.0); MCV 85.2 fL (80.0-100.0); MONOCYTES 8.7 % (1.0-8.0); PLATELET COUNT 317 thou/uL (150-400); POLYS 65.3 % (36.0-66.0); RBC 3.73 mil/uL (4.20-5.00); RDW 15.8 % (10.5-14.5); WBC 7.6 thou/uL (4.0-11.0)
[2021-06-15 05:36] LABS: CALCIUM 8.3 mg/dL (8.5-10.1); CREATININE 0.8 mg/dL (0.6-1.0); MAGNESIUM 1.2 mg/dL (1.8-2.4); POTASSIUM 3.7 mmol/L (3.5-5.1)
[2021-06-15 09:10] VITALS: BP 111/61
[2021-06-15 09:46] VITALS: BP 111/61
[2021-06-15 19:39] VITALS: BP 103/39
--- NOTE | 2021-06-15 22:35 | NUR ---
ASSUMED CARE OF PT AT 1900. PT WAS SLEEPING, BUT AROUSABLE. IS ORIENTED TO SELF. DENIES PAIN. IS ON ROOM AIR. IS STABLE. IS UP WITH 1 ASSIST, GB, WALKER. FALL PRECAUTIONS & HOURLY ROUNDING CONTINUED THIS SHIFT. LABS & VITALS REVIEWED. IS ABLE TO TURN SELF IN BED. LUNGS ARE CLEAR, BUT DIMENISHED TO AUSCULTATION. PT IS STILL SLEEPING AT THIS TIME. CALL LIGHT WITHIN REACH. WILL CONTINUE TO MONITOR.
--- NOTE | 2021-06-16 09:36 | NUR ---
SITTING IN WHEELCHAIR AT SIDE OF BED WITH BREAKFAST TRAY IN FRONT OF HER UPON INITIAL ASSESSMENT THIS AM.COMPLIENT WITH TAKING AM MEDICATIONS AND DENIES COMPLAINTS AT 0810-WHEN REAPPROACHED IN ROOM SHORT TIME LATER APPROX. 0845 WAS TEARFUL AND RUBBING LEFT THIGH STATING "IT HURTS IT HURTS"UNABLE TO STATE TO NURSE IF THIS IS A NEW PAIN OR IF IT WAS SOMETHING THAT HAD GIVEN HER PAIN BEFORE-STATES "I DON'T KNOW-MAYBE"GIVEN WARM MOIST PACK-REPOSITIONED IN RECLINER AND TYLENOL 650MG GIVEN PO PRN-DID REPORT SLIGHT IMPROVEMENT OF PAIN PRIOR TO GOING TO PHYSICAL THERAPY-AT APPROX.1000 UPON RETURN TO FLOOR STATES PAIN IS "BETTER" NOW I AM JUST TIRED I WANT TO REST"DYSPHORIC MOOD-ABRUPT VERBAL RESPONSES-DOES AMBULATE TO/FROM RESTROOM WITH SBA X1.
--- NOTE | 2021-06-16 13:12 | NUR ---
team meeting, recommendation, will need fww, will need frequent checks, ques Wake up, dressing, time voiding and bedtime and , meals. Will check with [facility]. dc 06/23
--- NOTE | 2021-06-16 16:06 | NUR ---
ON-GOING ASSESSMENT: CM FAXED UPDATED CLINICAL TO [facility] ([facility]) AND NOTIFIED OF ANTICIPATED DISCHARGE ON 06/23/21. CM ALSO LEFT WITH AL ADMISSIONS.
[2021-06-16 19:40] VITALS: BP 121/44
--- NOTE | 2021-06-16 22:38 | NUR ---
ASSUMED CARE OF PT AT 1915. PT IS A&O TO SELF. IS ON ROOM AIR. DENIES PAIN IN BILAT LES. IS STABLE. IS UP WITH 1 ASSIST, GB, WALKER. FALL PRECAUTIONS & HOURLY ROUNDING CONTINUED THIS SHIFT. IS ABLE TO TURN SELF IN BED. CAN BE INCONTINENT TO BLADDER AT TIMES. TOILETING OFFERED HOURLY & PROVIDED. PT IS CURRENTLY SLEEPING. CALL LIGHT WITHIN REACH. IS ABLE TO TURN SELF IN BED. WILL CONTINUE TO MONITOR.
--- NOTE | 2021-06-17 08:38 | NUR ---
PT SITTING UP IN W/C THIS AM EATING BREAKFAST. PT STATED SHE NEEDED TO USE THE BATHROOM. PT UP VIA WALKER TO BATHROOM WITH STEADY GAIT. PT DID HAVE BM, PT WAS CONT. OF URINE PRIOR USING BATHROOM. PT LUNGS CLEAR. PT DID STATE SHE HAS SOME PAIN TO LEFT LEG AND RUBBING IT. PT TOOK MEDS WHOLE WITH THIN WATER.
--- NOTE | 2021-06-17 08:40 | NUR ---
ADM TYLENOL 325MG 2 TABS FOR PAIN TO LEFT LEG.
--- NOTE | 2021-06-17 16:23 | NUR ---
Message left for Ella the community engagement coordinator for the [facility]) requesting they advise if they will need to do an onsite prior to the pt returning on 06/23 and if they offer memory care as pt needs lots of cuing for adl's and functional tasks. Ella can be reached through the main facility number [phone]. Will follow.
[2021-06-17 19:10] VITALS: BP 104/49
--- NOTE | 2021-06-18 03:46 | NUR ---
ASSUMED CARE AT 1900 OF 06/17. PATIENT IS A&O TO SELF. DENIES PAIN OR SOB. TOILETING AND ASSISTANCE TO CHANGE INTO GOWN OFFERED, PATIENT REFUSED TO GET OUT OF BED AT . ORAL MEDICATIONS TOLERATED WHOLE IN APPLE SAUCE. ABLE TO REPOSITION SELF IN BED. CALL LIGHT PLACED WITHIN REACH, BED ALARM ON, HOURLY ROUNDING CONTINUED. WILL CONTINUE TO MONITOR.
[2021-06-18 08:00] VITALS: BP 106/61
--- NOTE | 2021-06-18 10:25 | NUR ---
Pt seen d/t overdue LOS: Pt on rehab unit admitted with toxic metabolic encephalopathy, acute respiratory failure 2/2 PNE. PMH: COPD, CHF. Noted with hypokalemia and hyponatremia on admit, lab values improved. On lasix, MVI, Vit D, mirtazapine. >75% avg intakes at meals on chopped diet. Ensure enlive ordered QID. Last BM 06/17. With good dietary intakes, improved labs and supplement in place, pt is low nutrition risk.
--- NOTE | 2021-06-18 11:48 | NUR ---
CARE OF PATIENT ASSUMED AT 0700, PATIENT LAYING IN BED, SHE WAS WET AND REFUSING TO BE CHANGE, SHE LATER AGREE TO BE CHANGE, SHE IS ALERT TO SELF, CONFUSED, SHE ATE BREAKFAST, LUNGS CLEAR, ACTIVE BOWEL SOUND, COLOR BRISK WITH CAPILLARY REFILL, RR EVEN NONLABORED ON ROOM RA, SHE COMPLAINED OF PAIN AND TYLENOL, SHE IS INCONTINENT OF BOWEL AND BLADDER, PATIENT AMBULATE WITH WALKER AND WHEEL CHAIR, WILL CONTINUE TO MONITOR PATIENT FOR SAFETY
--- NOTE | 2021-06-18 14:28 | NUR ---
rubin called [facility] # [phone], spoke with [facility] wellness nurse to see what they can provide for her when she is dc back home?, need to talk with don and i will have her call you per pablo wellness nurse.
[2021-06-18 20:00] VITALS: BP 104/49
--- NOTE | 2021-06-18 22:04 | NUR ---
PT ALERT AND ORIENTED X 1. PT TOOK HS MEDS IN APPLESAUCE WITHOUT DIFFICULTY. PT REFUSED COLACE AND MIRALAX AT HS. PT DENIES PAIN OR DISCOMFORT. PT REFUSED TO GET OUT OF CLOTHES AT HS. STATED I JUST WANT TO SLEEP. SHE DOESN'T LIKE TO BE BOTHERED. BED ALARM ON FOR SAFETY. PT APPEARS TO BE SLEEPING ON HOURLY ROUNDS.
[2021-06-19 08:00] VITALS: BP 103/48
--- NOTE | 2021-06-19 11:37 | PLAN ---
[facility] [place] [address] [address] REHAB UNIT PLAN OF CARE Name: SARAH GREENE Room #: 514-P ADM IN M.R.#: [id number] Admission: 06/09/21 Attend Phys: Imer Shah MD Discharge: Date of : 34 Report #: [id number] THIS REPORT FOR: cc: Cody Redmond MD, Mark I. MD Smithson,Imer Richmond MD ~ DATE OF SERVICE: 06/10/2021 PROGRESS NOTE/OVERALL PLAN OF CARE HISTORY OF PRESENT ILLNESS: The patient is seen back today in followup. She was in no distress. Alert, pleasant. Vitals are as noted. She does not have any calf swelling. No shortness of breath. She is off any oxygen. She has been working in therapies with transfers at a mod assist level. Gait is min assist 3 feet without an assistive device. In occupational therapy, upper body dressing is min assist with lower body dressing, moderate assistance. She was seen by speech prior to her rehab admission and was placed on a mechanical soft, thin liquid diet. ASSESSMENT: 1. Toxic metabolic encephalopathy. 2. Medical complexity with generalized debilitation. 3. Acute respiratory failure. 4. Community-acquired pneumonia with sepsis. 5. Pulmonary embolism with a left lower extremity deep venous thrombosis. 6. Congestive heart failure. 7. Depression with premorbid cognitive deficits. 8. Hypertension. 9. Chronic obstructive pulmonary disease. PLAN: The overall plan of care is based on the pre-admit screen and information garnered from therapy assessments. 1. Estimated length of stay is probably 10-14 days. 2. Medical prognosis reasonably good. 3. Anticipated interventions includes the interdisciplinary acute inpatient rehabilitation program. 4. Anticipated functional outcomes would be for the patient to improve as far as overall functional mobility and ADL independence as well as improvement as far as overall cognition as she did have mental status changes with her toxic metabolic encephalopathy. 5. Discharge destination would be to return back to her assisted living apartment. 6. Expected therapy by discipline includes PT, OT and speech 1 hour per day each five days a week throughout the duration of the acute inpatient rehabilitation stay. [address] [address] REHAB UNIT PLAN OF CARE Name: GREENESARAH Janusz Room #: 514-P [facility] IN [facility].#: [id number] Admission: 06/09/21 Attend Phys: Imer Shah MD Discharge: Date of : 34 Report #: [id number] ADDENDUM: The patient's prognosis for significant practical improvement within a reasonable period of time appears good. Given the patient's complex medical condition and risk of further medical complication, rehabilitation services could not be safely provided at the lower level of care such as a detention facility. <ELECTRONICALLY SIGNED> By: Imer Shah MD 06/19/21 1137 [id number] Imer Shah MD /nt
--- NOTE | 2021-06-19 12:43 | HC ---
[facility] [place] [address] [place] [address] CONSULTATION Name: SARAH GREENE Room #: 514-P [facility] IN M.R.#: [id number] Admission: 06/09/21 Attend Phys: Imer Shah MD Discharge: Date of : 34 Report #: [id number] THIS REPORT FOR: cc: Cody Redmond MD, Mark I. MD Deutch,Charly Arzola. PhD ~ DATE OF SERVICE: 06/14/2021 NEUROBEHAVIORAL STATUS EXAM ATTENDING PHYSICIAN: Imer Shah MD COUNSELING CENTER DIRECTOR: Charly Brasher, PhD CLINICAL PRESENTATION: The patient is an 86-year-old female admitted to [facility] with acute respiratory failure, pneumonia with sepsis, multiple electrolyte abnormalities, acute toxic encephalopathy, pulmonary embolism and left lower extremity DVT. Her medical problem list included elevated D-dimer, DVT, hypokalemia, hyponatremia, pneumonia and sepsis. Her assessment on admission to the rehabilitation unit was toxic metabolic encephalopathy, medical complexity with generalized debility, acute respiratory failure, CAP with sepsis, PE, LLE DVT, congestive heart failure, depression, premorbid cognitive deficits, hypertension and COPD. A complete description of her medical condition and history can be found and her consultation was requested to provide assistance in the assessment of cognitive and emotional status and to provide recommendations and services. Prior to this most recent admission, she is reported to have been living in an independent assisted living placement at [facility]. She had helped with managing medication and her daughter was managing bills. The patient has one brother, one biological daughter and one stepdaughter. From her third marriage, about 4 years ago. The patient was a questionable historian and was not sure where she had been living or if she has had helped in managing activities of daily living. TECHNIQUES UTILIZED: Clinical interview, review of medical records, staff consultation and behavioral observation, mini mental status exam 2 standard version and clock drawing. EXAMINATION FINDINGS: The patient was alert and cooperative with the assessment. She was uncertain about events surrounding her admission. As indicated, she appeared to lack insight into cognitive deficits. She was unable to indicate aspects of independent living prior to her admission. She does not report difficulty with memory. 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 She does not report problems [address] [address] CONSULTATION Name: SARAH GREENE Room #: 514-P [facility] IN ..#: [id number] Admission: 06/09/21 Attend Phys: Imer Shah MD Discharge: Date of : 34 Report #: [id number] with appetite, sleep, anxiety or depression. Her daughter provide history to the extent that require increased assistance. The pandemic is described as having been difficult for the patient's adjustment. The patient is described as being showing more severe cognitive disorder in comparison to the daughter's opinion of her premorbid state. The patient's performance on the MMSE 2 brief version was extremely low with a raw score of 4/16. She was 3/3 for initial registration, 0/5 for orientation to time, 1/[address] and 0/3 for immediate recall of 3 items after a brief time delay and distraction. Performance on the MMSE 2 standard version was extremely low with a raw score of 11/30. She was 0/5 for serial sevens, 2/2 for naming, 1/1 for repetition, 3/3 for auditory comprehension. She could read and follow a single command. The patient was unable to copy a simple geometric design. Clock drawing was impaired for hand placement. The patient is presenting with severe deficits in cognitive functioning. Decreased insight is also suggested. DIAGNOSTIC IMPRESSION: Major neurocognitive disorder (dementia) possibly due to Alzheimer disease, with decreased insight -- extent to be determined, likely in the moderate range. RECOMMENDATIONS: The patient will very likely require living environment that provides memory care options. She will need help with managing medication, finances and nutrition. Family education will also be helpful to clarify the severity of the patient's cognitive functioning and the extent to which environmental help is necessary. Verbal praise and complements about participation in therapies along with a consistent and structured routine will also help in overall adjustment. Thank you very much for allowing me to provide the consultation on this patient. <ELECTRONICALLY SIGNED> By: Charly Brasher, PhD 06/19/21 [id number] Charly Brasher, PhD /nt
--- NOTE | 2021-06-19 13:25 | NUR ---
Cm faxed updates to aleisha at [facility]. # [phone]. Spoke with roxy-daughter and she agrees with dc 06/23/21
--- NOTE | 2021-06-19 13:39 | NUR ---
PT NOTED TO BE TIRED TODAY, AND GOAL WAS "TO BE LEFT ALONE. i WANT TO REST." PT DID PARTICIPATE IN THERAPIES THIS AM AND DENIED PAIN, BUT REFUSED ANY ADDITIONAL ATTEMPTS AT TIMED VOIDING OR OTHER ACTIVITY. NOTED ORDER FOR XRAY OF THE HIP AND AWAITING RADIOLOGY FOR THIS, THEN WILL ATTEMPT TOILETING AGAIN PRIOR TO ASSISTING TO BED.
--- NOTE | 2021-06-19 19:17 | NUR ---
ASSUMED CARE OF PT AT 1430. PT IS ON ROOM AIR. DENIES PAIN. IS STABLE. IS UP WITH 1 ASSIST, GB, WALKER. FALL PRECAUTIONS & HOURLY ROUNDING CONTINUED THIS SHIFT. LABS & VITALS REWIEWED. PT IS CURRENTLY SLEEPING. CALL [facility] WITHIN REACH. WILL CONTINUE TO MONITOR.
[2021-06-19 20:29] VITALS: BP 113/49
[2021-06-20 03:02] LABS: HEMATOCRIT 26.9 % (37.0-47.0); HEMOGLOBIN 8.8 gm/dL (12.0-15.0); MCH 28.2 pg (26.0-34.0); MCHC 32.7 g/dL (28.0-37.0); MCV 86.4 fL (80.0-100.0); RBC 3.11 mil/uL (4.20-5.00); WBC 5.2 thou/uL (4.0-11.0)
[2021-06-20 03:24] LABS: CALCIUM 8.3 mg/dL (8.5-10.1); CREATININE 0.8 mg/dL (0.6-1.0); POTASSIUM 3.6 mmol/L (3.5-5.1)
--- NOTE | 2021-06-20 04:57 | NUR ---
ASSUMED CARE AT 1900 OF 06/19. PATIENT IS A&O TO SELF, DENIES ACUTE PAIN, BUT REPORTS INTERMITENT ACHE IN LEFT HIP. LIDOCAINE PATCH REMOVED FROM LEFT HIP AND SCHEDULED TYLENOL ADMINISTERED TO MANAGE PAIN. PATIENT REFUSED TO CHANGE INTO GOWN AT HS, AND APPEARED FURSTRATED WHEN NURSE OFFERED ASSISTANCE TO REMOVE JACKET OFF. PATIENT REPORTS SHE JUST WANTS TO SLEEP AND BE LEFT ALONE. REQUESTED TO BE LEFT IN BRIEFS, BRIEFS WERE DRY AT HS. ABLE TO REPOSITION SELF IN BED. CALL LIGHT WITHIN REACH, FALL PRECAUTIONS IN PLACE, WILL CONTINUE TO MONITOR.
[2021-06-20 08:00] VITALS: BP 127/62
--- NOTE | 2021-06-20 09:44 | NUR ---
PT SITTING UP FOR BREAKFAST. PT DENIES ANY PAIN. PT ORIENTED TO PERSON AMD PLACE. PT LUNGS SOUND EXP WHEEZE TO BASES, PT HAS BEEN HAVING A COUGH. PT SHOWED THIS DENTISTRY PROFESSOR KLEENEX WITH SMALL THICK YELLOW SPUTUM. PT VERY CHEERFUL AND SMILES WITH STAFF. PT UP X1 STAND-BY WITH WALKER.
--- NOTE | 2021-06-20 13:37 | NUR ---
ASSISTED PT TO BATHROOM. PT HAD LARGE SOFT BM IN BRIEF. PT VERY APPOLOGETIC ABOUT ACCIDENT. PT STATED SHE DIDN'T KNOW WHY SHE DID THAT, THAT USUALLY SHE KNOWS BEFORE SHE GOES. PT DIDN'T RECIEVE ANY LAXATIVES THIS AM.
[2021-06-20 20:00] VITALS: BP 119/58
--- NOTE | 2021-06-21 03:04 | NUR ---
ASSUMED CARE AT 1900 OF 06/20. PATIENT IS A&O TO SELF AND PLACE, DENIES PAIN OR SOB. LUNG SOUNDS ARE CLEAR IN UPPER LOBES AND CRACKLES HEARD IN LOWER LOBES. INTERMITTENTLY COUGHING DURING SLEEP, PATIENT REPORTS NOT BEING ABLE TO SPIT OUT SPUTUM AND SWALLOWING IT SOMETIMES. AT HS PATIENT APPEAR FURSTRATED WITH NURSE'S ATTEMPT AT ASSISTING PATIENT TO CHANGING INTO GOWN AND OUT OF BRIEF. PATIENT CONSENTED TO HAVE BRIEF CHANGED, BUT NOT CHANGING HER CLOTHES. PATIENT DID HAVE AN EPISODE OF BLADDER INCONTINENCE IN HER BRIEFS. FRESH BRIEF APPLIED AND PANTS PUT BACK ON PER PATIENT REQUEST. MODERATE ASSIST FROM SIT TO STAND AT SIDE OF BED, AND MAXIMUM ASSIST WITH LOWER BODY DRESSING PROVIDED. PATIENT IS ASSIST BACK INTO BED, AMELIE HOSE TAKEN OFF.PATIENT IS ABLE TO REPOSITION SELF IN BED. APPEARS TO BE SLEEPING DURING HOURLY ROUNDS. FALL PRECAUTIONS IN PLACE, CALL LIGHT WITHIN REACH, WILL CONTINUE TO MONITOR.
[2021-06-21 07:20] VITALS: BP 118/57
--- NOTE | 2021-06-21 18:26 | NUR ---
Assumed pt care at 0700. Pt was alert and oriented to person and situation. Calm and cooperative with care. Took meds whole with thin liquid, no difficulty noted. Pt IS A max assist. Pt incontinent of bladder x3 and continent of bladder x1. Intermittently coughing this shift. Pt was unable to spit out sputum. Pt is a fall risk. FALL PRECAUTION IN PLACE. Call light within reach. WILL CONTINUE TO MONITOR.
[2021-06-21 19:31] VITALS: BP 115/48
--- NOTE | 2021-06-22 03:39 | NUR ---
ASSUMED CARE AT 1900 OF 06/21. PATIENT IS A&O TO PERSON AND SITUATION. COOPERATIVE WITH CARES AT HS, TOLERATED MEDS WHOLE IN APPLE SAUCE. MODERATE TO MAXIMUM ASSIST WITH TRANSFERS AND ADLS AT HS. CONTINUES TO BE INCONTINENT OF BLADDER, PERICARE PROVIDED AND FRESH BRIEFS APPLIED. INTERMITENT COUGHING NOTED, BUT PATIENT REPORTS SHE IS UNABLE TO COUGH UP ANYTHING. LUNG SOUNDS PRESENT AND CRACKLES AUSCULATATED BILATERALLY. INCENTIVE SPIROMETRY ENCOURAGED. FALL PRECAUTIONS IN PLACE, CALL LIGHT WITHIN REACH, WILL CONTINUE TO MONITOR.
[2021-06-22 07:15] VITALS: BP 102/42
--- NOTE | 2021-06-22 15:52 | NUR ---
DID WORK WITH PT/OT THIS AM -COMPLIENT WITH TAKING AM MEDICATIONS IN APPLESAUCE -DENIES C/O PAIN DISCOMFORT DURING AM ASSESSMENT -TYLENOL ADMINISTERED ON ROUTINE BASIS PER SCHEDULOED MEDS IN ADDITION TO VOLTERAN TOPICAL CREAM. ORIENTED TO PERSON -HOSPITAL-NO TO DATE. UMA DENG,CHRISTINA X1 TO/FROM BR-DID HAVE SOFT FORMED BM EARLY THIS AM-NEW "O" TO COLLECT STOOL SPECIMEN FOR OCCULT BLOOD. HAS REMAINED CONTINENT SO FAR THIS SHIFT-DOES REQUIRE PROMPTING,QUEING Q2-3 TO USE BATHROOM. NO SKIN BREAKDOWN NOTED
[2021-06-22 20:38] VITALS: BP 113/62
--- NOTE | 2021-06-23 02:39 | NUR ---
PT ASSESSMENT COMPLETED AND VSS. MEDS GIVEN ORDERED AND WELL TOLERATED. FALL PRECAUTIONS IN PLACE. UP TO THE BATHROOM WITH ASST/GAIT/WALKER. PT AGITATED THIS EVENING AND WAS NOT WILLING TO REMOVE HER BRIEF OR PANTS. EVEN AFTER ENCOURAGEMENT. PT FRUSTRATED WITH TAKING NIGHT MEDICATIONS BUT DID DECIDE TO TAKE THEM. PROVIDED MUCH EMTIONAL SUPPORT. SLEEPING WELL AT THIS TIME. WILL CONTINUE TO MONITOR FREUQCHAIY.
[2021-06-23 05:54] LABS: ABSOLUTE NEUTROPHILS 2.7 thou/uL (1.4-8.2); BASOPHILS 1.2 % (0.0-2.0); EOSINOPHILS 5.9 % (0.0-3.0); HEMATOCRIT 28.3 % (37.0-47.0); HEMOGLOBIN 9.2 gm/dL (12.0-15.0); MCH 28.3 pg (26.0-34.0); MCHC 32.4 g/dL (28.0-37.0); MCV 87.4 fL (80.0-100.0); MONOCYTES 7.2 % (1.0-8.0); PLATELET COUNT 287 thou/uL (150-400); POLYS 63.7 % (36.0-66.0); RBC 3.23 mil/uL (4.20-5.00); RDW 17.6 % (10.5-14.5); WBC 4.2 thou/uL (4.0-11.0)
[2021-06-23 06:15] LABS: CALCIUM 8.4 mg/dL (8.5-10.1); CREATININE 0.7 mg/dL (0.6-1.0); MAGNESIUM 1.5 mg/dL (1.8-2.4); POTASSIUM 3.8 mmol/L (3.5-5.1)
[2021-06-23 08:00] VITALS: BP 109/50
[2021-06-23 09:29] VITALS: BP 109/50
--- NOTE | 2021-06-23 09:49 | NUR ---
Chart copy requested for dc today back to long-term at the [facility]. Bedside nurse to call report to [phone]. fax dc orders to [phone] and [phone]. [facility] will follow her for hh needs ( pt, ot, st,). Family unable to transport and facility able to use their transportation. Wheel chair transportation set up with [employer] [phone] cone picker.
[2021-06-23] MEDS ORDERED: TYLENOL EXTRA500 MG PO (10:11)
[2021-06-23] MEDS ORDERED: MUCINEX600 MG PO (10:11)
[2021-06-23] MEDS ORDERED: VITAMIN D325 MC2 PO (10:11)
[2021-06-23] MEDS ORDERED: FOLIC ACID0.4 MG PO (10:11)
[2021-06-23] MEDS ORDERED: CALCIUM 600 +1 EAC1 PO (10:11)
[2021-06-23] MEDS ORDERED: IRON325 PO (10:11)
[2021-06-23] MEDS ORDERED: LIDOPATCH1 EACH TRANSDERM (10:11)
[2021-06-23] MEDS ORDERED: ELIQUIS5 MG PO (10:11)
[2021-06-23] MEDS ORDERED: MIRALAX17 GM PO (10:13)
[2021-06-23] MEDS ORDERED: COLACE100 MG PO (10:13)
[2021-06-23 11:32] VITALS: BP 109/50
[2021-06-23] MEDS ORDERED: DOXYCYCLINE HYC50 MG PO (12:06)
--- NOTE | 2021-06-23 12:31 | NUR ---
ASSUMED CARE AT 0700. PATIENT IS CONFUSED. PATIENT RASHEED. BATCHING OPERATOR ARE EQUAL. LUNGS ARE COARSE AND DEMINISED > ON THE RIGHT, BUT INCLUDING THE LEFT. PATIENT CONTINUES ON PO ABT. PATIENT IS UP IN THE CHAIR WITH ASSIST OF 1 STAFF AND GAIT BELT. PATIENT ABD IS SOFT WITH BSX4. PATIENT HAD BM TODAY. SPECIMENT SENT TO LAB FOR OCCULT BLOOD. UP T0 THE BATHROOM TO VOID JOHN COLORED URINE. FALL AND SAFETY PROTOCOLS IN PLACE. C/O PAIN IN HER LEFT THIGH AND HIP. MEDICATED WITH PRN PAIN MED AND LIDOCAINE PATCH. CONTINUES TO PROGRESS TOWARDS D/C GOALS. PLAN D/C LATER TODAY.
--- NOTE | 2021-06-23 12:34 | NUR ---
1145 REPORT CALLED TO [facility]. PATIENT LEFT UNIT IN GOOD CONDITION PER W/C. PATIENT LEFT WITH ALL OF HER BELONGINGS, AND NEW WALKER.
== END 2021-06-23 12:36 | disposition home health service (06) | DRG 91 ==
PROVIDERS: Internal Medicine; Nurse Practitioner; Nurse Practitioner Family; ADMIT Physical Medicine & Rehabilitation; ATTEND Physical Medicine & Rehabilitation
DX: G92 Toxic encephalopathy (principal); A41.9 Sepsis, unspecified organism; J96.00 Acute respiratory failure, unspecified whether with hypoxia or hypercapnia; J18.9 Pneumonia, unspecified organism; I26.99 Other pulmonary embolism without acute cor pulmonale; J44.0 Chronic obstructive pulmonary disease with (acute) lower respiratory infection; I82.412 Acute embolism and thrombosis of left femoral vein; I82.432 Acute embolism and thrombosis of left popliteal vein; N17.9 Acute kidney failure, unspecified; D62 Acute posthemorrhagic anemia; E11.649 Type 2 diabetes mellitus with hypoglycemia without coma; I11.0 Hypertensive heart disease with heart failure; I50.9 Heart failure, unspecified; E03.9 Hypothyroidism, unspecified; R94.31 Abnormal electrocardiogram [ECG] [EKG]; R53.81 Other malaise; K59.00 Constipation, unspecified; E87.8 Other disorders of electrolyte and fluid balance, not elsewhere classified; F01.50 Vascular dementia, unspecified severity, without behavioral disturbance, psychotic disturbance, mood disturbance, and anxiety; D72.829 Elevated white blood cell count, unspecified; M81.0 Age-related osteoporosis without current pathological fracture; I10 Essential (primary) hypertension; F32.9 Major depressive disorder, single episode, unspecified; Z88.0 Allergy status to penicillin; Z88.2 Allergy status to sulfonamides; Z79.899 Other long term (current) drug therapy
CPT/HCPCS: 10112